=== PATIENT | male | born 1960 | race Caucasian/White ===

== ENCOUNTER 2017-01-22 17:07 | Emergency (ER) | payer BC, OTHER ==
[~2017-01-22] VITALS: Ht 182.9 cm; Wt 83.9 kg
[~2017-01-22 17:07] MED LIST: OXYCODON-ACETA1 EAC2 PO
[2017-01-22] MEDS ORDERED: DICLOFENAC SODI75 MG PO (20:05)
== END 2017-01-22 20:09 | disposition home or self-care (01) ==
LOC: ED 17:07
DX: M94.0 Chondrocostal junction syndrome [Tietze] (principal)
CPT/HCPCS: 71020; 80053; 85025; 85379; 99283

== ENCOUNTER 2020-10-26 13:11 | Emergency (ER) | payer BC ==
[~2020-10-26] VITALS: Ht 182.9 cm; Wt 88.4 kg
[~2020-10-26 13:11] MED LIST changes: +DICLOFENAC SODI75 MG PO
[2020-10-26] MEDS ORDERED: TRIHEXYPHENIDYL2 MG PO (13:44)
[2020-10-26] MEDS ORDERED: CARBIDOPA-LEVO1 EAC1 PO (13:44)
[2020-10-26] MEDS ORDERED: OXYCODONE HCL5 M1 PO (13:45)
== END 2020-10-26 15:41 | disposition home or self-care (01) ==
LOC: ED 13:11
DX: Z48.816 Encounter for surgical aftercare following surgery on the genitourinary system (principal); G20 Parkinson's disease; Z79.899 Other long term (current) drug therapy
CPT/HCPCS: 99283

== ENCOUNTER 2021-02-17 16:54 | Inpatient (IN) | payer BC ==
[~2021-02-17] VITALS: Ht 182.9 cm; Wt 97.5 kg
[~2021-02-17 16:54] MED LIST changes: +CARBIDOPA-LEVO1 EAC1 PO; +OXYCODONE HCL5 M1 PO; +TRIHEXYPHENIDYL2 MG PO
[2021-02-17] MEDS ORDERED: SILDENAFIL20 MG PO (17:10)
--- NOTE | 2021-02-17 22:11 | NUR ---
PT ADMITTED TO ROOM 115 FROM ED, ACCOMPAINED BY HIS DAUGHTER. A/O, RA, PAINFUL WHEN MOVING. REQUIRED MULT STAFF TO SLIDE HIM ACROSS TO THE BED, EXTREME PAIN WITH MOVEMENT, HOWEVER, ONCE IN BED, HIS PAIN DECREASED.
--- NOTE | 2021-02-17 23:10 | NUR ---
PT ALERT AND ORIENTED. REPORTS PELVIC PAIN 12/14. PRN FOR PAIN ADMINISTERED PER EMAR. PT DENIES NAUSEA OR SOB. FRESH WATER AND SNACK PROVIDED. SLIGHT RUE TREMOR NOTED FROM KNOWN PARKINSON'S. LAWN MOWER SHARPENER IN ROOM FOR ADMISSION HX.
--- NOTE | 2021-02-18 00:15 | NUR ---
SCHEDULED MEDS ADMINISTERED PER EMAR. PT REPORTS PAIN /10. SCHEDULED PAIN MEDS ADMINISTERED. SCD'S/TEDS/HP PLACED. ICE TO RIGHT GROIN. BRUISING AND GENERALIZED EDEMA NOTED TO GROIN AREA. BILAT LEGS INVOLUNTARILY EXTENDING LATERALLY. PILLOWS PLACED TO KEEP LEGS ON BED. PT UNABLE TO MOVE BLE WITHOUT ASSISTANCE. SUPPLIES PROVIDED FOR PM CARES. PT ORIENTED TO ROOM AND NURSE CALL LIGHT. DENIES FURTHER NEEDS. CALL LIGHT IN REACH.
--- NOTE | 2021-02-18 02:22 | NUR ---
SCHEDULED MEDS ADMINISTERED. PT REPORTS HE IS RESTING WELL. PAIN 4/10 IN SACRAL AREA AT REST WHICH PT REPORTS IS TOLERABLE. FRESH ICE TO GROIN. SCROTUM ELEVATED. SCD'S/TEDS/HP IN PLACE. PT DENIES FURTHER NEEDS. CALL LIGHT IN REACH.
--- NOTE | 2021-02-18 06:27 | NUR ---
VS AND I&O COMPLETE. SCHEDULED MEDS ADMINISTERED PER EMAR. PRN FOR PAIN ADMINISTERED FOR BREAKTHROUGH PAIN. PT REPOSITIONED IN BED WITH PILLOWS. LEFT LEG WITH SPASMODIC TYPE MOVEMENTS PT REPORTS IS NOT BASELINE. LEGS CONTINUE TO INVOLUNTARILY MOVE LATERALLY. PILLOWS AND TOWELS UTILIZED TO KEEP LEGS ON BED. PT DENIES N/T IN BLE. CAP REFILL WNL. SCD'S/TEDS/HP IN PLACE. HEMATOMA IN RIGHT GROIN AREA UNCHANGED. FRESH ICE TO AREA. SCROTUM ELEVATED. PT PROVIDED MENU AND INSTRUCTIONS TO ORDER BREAKFAST. NO FURTHER NEEDS AT THIS TIME. CALL LIGHT IN REACH.
--- NOTE | 2021-02-18 07:10 | NUR ---
Report received from Keri KLEIN. Pt alert and oriented, states pain is 4/10, medication administered at this time. Discussed retime of chronic parkinsons meds to be closer to home dosage time. Pharmacy called and this is corrected. Pt states no needs at this time, will continue plan of care.
--- NOTE | 2021-02-18 08:16 | NUR ---
Scheduled medications administered, pt resting in bed and requests bathing options, TAILINGS WORKER to take in wipes, shower cap, etc. No other needs at this time
--- NOTE | 2021-02-18 08:26 | NUR ---
PT HAS ALL BEDBATH SUPPLIES AT BEDSIDE. CALL LIGHT WITHIN REACH. FRESH COFFEE GIVEN. NO FURTHER NEEDS.
--- NOTE | 2021-02-18 09:30 | NUR ---
Scheduled medications administered, assessment complete. Pt continues to experience legs involuntarily spreading to outside of bed. Repositioned with pillows, heel protectors and SCDs in place. Pt reports no pain but is anticipating physical therapy and requests to be premedicated with dilaudid, 0.5mg administered. Florina PT in room.
--- NOTE | 2021-02-18 11:12 | NUR ---
MED REC COMPLETE
--- NOTE | 2021-02-18 12:00 | NUR ---
In room for medication administration, Pt up to chair and feeling encouraged related to physical therapy progress. Urinal emptied, lunch tray cleared. Pt has no further needs. Call light in reach.
--- NOTE | 2021-02-18 13:00 | NUR ---
Pt lives alone, adult children will be in town and will assist and stay with pt for approximately 10 days. Pt lives in 1 story home with no stairs or steps. Pt would like a walker and is asking a friend to u use his. Let pt know about [employer] or I can order from DME through insurance. He would like information for cg and dis- cussed in the home. Explained cg cost is out of pocket. Discussed need for HH and this would depend on PT notes and Dr determining need for PT at home.
--- NOTE | 2021-02-18 13:48 | NUR ---
PT AWAKE IN BED. PT BROKE PERSONAL CHARGING CORD, THIS STATION ATTENDANT GAVE PT A LOANER CORD. SNACK GIVEN TO PT. CALL LIGHT WITHIN REACH. NO FURTHER NEEDS AT THIS TIME.
--- NOTE | 2021-02-18 14:00 | NUR ---
Scheduled medications administered, pt resting in bed at this time and states feeling tired and would like to nap. Assessment complete and unchanged, VSS, Pt has no needs, allowed to rest at this time. Call light in reach.
--- NOTE | 2021-02-18 16:52 | NUR ---
Pt worked with physical therapy this shift and tolerated very well, walked laps in hallway with toe touch WB on R side and FWW. Pt pain managed with scheduled toradol, tylenol and 0.5mg PRN dilaudid prior to PT. Pt has normal appetite, VQS, A+O, VSS, on room air, saline locked. 1PA to BR or urinal use. Ice to scrotal area/elevate. Calls appropriately.
--- NOTE | 2021-02-18 17:25 | NUR ---
Reviewed PT note after they worked with pt today. Recommendation is 1-2 days PT. Did not recommend HH PT. I will leave a note for Dr. Rangel asking if he would like PT at home for this pt.
--- NOTE | 2021-02-18 17:58 | NUR ---
Pt requests to walk in hallway, asks for PRN dilaudid prior, administered. Urinal emptied, dinner tray cleared, pt has no further needs.
--- NOTE | 2021-02-18 18:19 | NUR ---
Pt walks in hallway with this RN, toe touch WB with FWW, tolerates very well and walks 3 laps. Back to room and set up with shower. Pt states very little pain at this time, mainly "tight and sore muscles". Discussed plan of care to which he is agreeable. Call light in reach.
--- NOTE | 2021-02-18 19:38 | NUR ---
REPORT RECEIVED FROM DAY SHIFT RN. PT LYING IN BED ALERT AND ORIENTED. REPORTS PAIN IS TOLERABLE AT THIS TIME. FRESH WATER PROVIDED. WHITE BOARD UPDATED. NO FURTHER NEEDS. CALL LIGHT IN REACH.
--- NOTE | 2021-02-18 23:00 | NUR ---
EVENING ASSESSMENT COMPLETE. SCHEDULED MEDS ADMINISTERED PER EMAR. PT RATES SACRAL/GROIN PAIN 09/14. DENIES NAUSA. SCD'S/TEDS IN PLACE. FRESH ICE TO RIGHT GROIN AREA. PT DENIES N/T IN BLE. CAP REFILL WNL. RIGHT GROIN WITH LARGE BRUISE AND EDEMA NOTED. SCROTAL EDEMA NOTED. SCROTUM ELEVATED. FRESH WATER PROVIDED. PT DENIES QUESTIONS OR CONCERNS. CALL LIGHT IN REACH.
--- NOTE | 2021-02-19 01:15 | NUR ---
PT RESTING IN BED WITH EYES CLOSED. RESPIRATIONS EVEN. NO APPARENT DISTRESS. CALL LIGHT IN REACH.
--- NOTE | 2021-02-19 02:37 | NUR ---
SCHEDULED MEDS ADMINISTERED. PT REPORTS HE IS RESTING WELL. DENIES PAIN AT REST. SCD'S/TEDS/HP IN PLACE. FRESH ICE TO GROIN. DENIES NEEDS. CALL LIGHT IN REACH.
--- NOTE | 2021-02-19 04:42 | NUR ---
PT UP TO AMB 3X AROUND NURSING UNIT WITH FWW AND SBA. TTWB RLE. GAIT STEADY. PT BACK TO BED, ZANE WELL. SCD'S/TEDS IN PLACE. COFFE AND FRESH ICE PACK PROVIDED. PT DENIES FURTHER NEEDS. CALL LIGHT IN REACH.
--- NOTE | 2021-02-19 06:40 | NUR ---
PT SITTING UP IN BED. REPORTS SACRAL/GROIN PAIN 09/14. SCHEDULED MEDS ADMINISTERED WITH CRACKERS. FRESH COFFEE PROVIDED. PT DENIES FURTHER NEEDS. CALL LIGHT IN REACH.
--- NOTE | 2021-02-19 08:50 | NUR ---
Spoke with pt about walker. He will have a friend bead picker a loaner walker from [facility]. I also spoke with Estefany BANG and she would like pt to be a IP to cont. PT.
--- NOTE | 2021-02-19 08:50 | NUR ---
Spoke with pt about walker. He will a friend borrow one from [place]. Family plan to stay with Scot on dc.
--- NOTE | 2021-02-19 09:05 | NUR ---
Scheduled medications administered, assessment complete. Pt in bathroom independently using FWW, requests to walk in hallway with aide. Pt states pain is tolerable at this time, has been icing and elevating affected areas. No other needs at this time, will continue plan of care
--- NOTE | 2021-02-19 10:15 | NUR ---
Tramadol administered, pt reports pain up to 6/10 with ambulation but back to 4 with rest, does not require further PRN medications at this time. MARKETING MANAGER HEALTH COMMUNICATIONS in room to take vitals, ice water provided, pt has no other needs from RN
--- NOTE | 2021-02-19 10:24 | NUR ---
VS AND I&O HAVE BEEN TAKEN AND DOCUMENTED. PT IS SITTING UP IN THE CHAIR AND HAS NO OTHER NEEDS AT THIS TIME. INFORMED PT TO CALL IF HE THINKS OF ANYTHING. CALL LIGHT IS IN REACH.
--- NOTE | 2021-02-19 12:25 | NUR ---
Medications administered, pt eating lunch in bed and states no pain, no needs. Discussed physical therapy progress and pt is encouraged. Call light in reach
--- NOTE | 2021-02-19 14:21 | NUR ---
Scheduled medications administered, pt up working with physical therapist, states no pain and or other needs at this time, in good spirits.
--- NOTE | 2021-02-19 19:31 | NUR ---
SHIFT REPORT RECEIVED FROM AMY KLEIN. PT RESTING IN BED, PLAYING ON COMPUTER. NO NEEDS AT THIS TIME. CALL LIGHT IN REACH.
--- NOTE | 2021-02-19 21:07 | NUR ---
PATIENT ROOM TIDIED, VITALS, IS AND OS CHARTED, TRASH EMPTIED, FRESH ICE WATER PROVIDED. NO OTHER IMMEDIATE NEEDS AT THIS TIME.
--- NOTE | 2021-02-19 21:17 | NUR ---
PATIENT HAD WINE GLASS ON TABLE, PATIENT THEN NOTIFED ME THAT SOMEONE HAD POURED HIM A GLASS OF WINE. PATIENT NURSE WAS NOTIFIED IMMEDIATELY.
--- NOTE | 2021-02-19 21:20 | NUR ---
NOTIFIED BY CROP NUTRITION SCIENTIST THAT PT WAS DRINKING RED WINE. RN WALKS INTO ROOM PT IS FINISHING DRINK. RN DISCUSSED WITH PT THE POSSIBLE CONFLICTS OF ALCOHOL WITH MEDICATION. PT VERBALIZES UNDERSTANDING OF EDUCATION AND STATES THAT THAT WAS THE LAST OF THE ALCOHOL HE HAS WITH HIM AND HE WILL NOT BE DRINKING ANYMORE. PT ASKED HOW OFTEN HE DRINKS, HE STATES "NOT DAILY." RN ADVISED PT THAT IF HE FEELS HE NEEDS ALCOHOL WHILE HERE THAT MD CAN BE CALLED AND ADVISED ETOH WITHDRAWL WOULD NOT BENEFIT HIM. PT DENIES NEED FOR AN ORDER FOR ALCOHOL. PT VERBALIZES UNDERSTANDING OF ALCOHOL EDUCATION. NO OTHER NEEDS AT THIS TIME. CALL LIGHT IN REACH.
--- NOTE | 2021-02-19 22:00 | NUR ---
ASSESSMENT COMPLETED. GCS 15, A&O X4. LUNGS CLEAR, HEART TONES REGULAR. ABD SOFT, NONTENDER, BOWEL TONES ACTIVE. RIGHT THIGHT AND BUTTOCKS PAIN 4/10. SCHEDULED MEDS PROVIDED. CMS INTACT. SCROTAL EDEMA NOTED, ICE PACKS PROVIDED. IV WNL, CDI, FLUSHED WELL. PT UP WALKING LAPS WITH BYPRODUCTS OPERATOR.
--- NOTE | 2021-02-19 22:15 | NUR ---
ASSISTED PATIENT WITH TTWB ON RIGHT LEG. ASSISTED PATIENT WITH 6 LAPS AROUND THE FLOOR. ASSISTED PATIENT BACK TO ROOM, CHARTED PATIENT IS AND OS, WELL WITH PERSONAL HYGIENE, CONNECTED SCD'S, PROVIDED FRESH ICE WATER, ROOM TIDIED, FRESH ICE PACKS PROVIDED FOR CARE PLAN GOALS. CALL LIGHT LEFT WITHIN REACH. NO OTHER IMMEDIATE NEEDS AT THIS TIME.
--- NOTE | 2021-02-19 23:03 | NUR ---
PATIENT VOIDED IN TOILET, UNMEASURE, DOCUMENTED. INTAKE DOCUMENTED WELL. RIGHT HEEL FLOATED WITH PILLOW. CALL LIGHT LEFT WITHIN REACH, NO OTHER IMMEDIATE NEEDS AT THIS TIME.
--- NOTE | 2021-02-19 23:22 | NUR ---
PT RESTING IN BED, EYES CLOSED. RR EVEN, UNLABORED. CALL LIGHT IN REACH.
--- NOTE | 2021-02-20 01:57 | NUR ---
SCHEDULED MED PROVIDED. PT REPORTS NO PAIN AT THIS TIME. NO OTHER NEEDS. CALL LIGHT IN REACH.
--- NOTE | 2021-02-20 03:28 | NUR ---
PT RESTING IN BED, EYES CLOSED. RR EVEN, UNLABORED. CALL LIGHT IN REACH.
--- NOTE | 2021-02-20 06:12 | NUR ---
ASSESSMENT, VS AND I&O COMPLTED. SCHEDULED MED PROVIDED. RIGHT GROIN PAIN 09/14. HEMATOMA AND EDEMA TO GROIN, PUBIS AND POSTERIOR RIGHT THIGH UNCHANGED THIS SHIFT. CMS INTACT. IV WNL. PAIN WELL MANAGED WITH SCHEDULED MEDS. PT WALKED 5 LAPS AROUND FLOOR WITH FWW. COFFEE PROVIDED. NO OTHER NEEDS AT THIS TIME. CALL LIGHT IN REACH.
--- NOTE | 2021-02-20 07:08 | NUR ---
REPORT RECEIVED FROM ERNIE BILLINGSLEY. PT UP TO CHAIR, DOING PHYICAL THERAPY EXERCISESE "THAT ELIJAH TOLD ME TO DO." PT REPORTS 3/10 PAIN THAT IS WELL CONTROLED, DENIES NEED FOR ADDITIONAL PAIN MEDICATION. PT DENIES NAUSEA. NO ADDITIONAL REQUESTS OR COMPLAINTS. CALL LIGHT WITHIN REACH. 0700 MEDICATIONS TO BE GIVEN BY ERNIE BILLINGSLEY.
--- NOTE | 2021-02-20 07:15 | NUR ---
SCHEDULED MEDS PROVIDED. NO OTHER NEEDS. CALL LIGHT IN REACH.
--- NOTE | 2021-02-20 08:50 | NUR ---
Spoke with Estefany as she is here to see Scot. Updated he is waiting on a walker, she states she will pick one up fromthe office and bring for him to use at home. Plans on dc today. Spoke with Scot and his son will machine operator picker and transport home.
--- NOTE | 2021-02-20 09:10 | NUR ---
MORNING ASSESSMENT AND MEDICATIONS DUE. PT UP TO CHAIR, FINISHING BREAKFAST. PT REPORTS 2/10 PAIN WHEN RESTING THAT "SOMETIMES GOES UP TO 3 OR 4 DEPENDING ON HOW I MOVE." ASSESSMENT DONE. STRONG PLANTAR AND NIDHI FLEXION NOTED TO BLE. PT ABLE TO LIFT BOTH LEGS FROM THE KNEE STRAGHT UP. PT HAS DIFFICULTY LIFTING LEGS USING QUADRACEPT MUSCLES, STRIGHT UP FROM CHAIR. STRONG PULSES NOTED, SENSATION INTACT TO BLE. PT UP TO AMBULATE IN MORAN X2 LAPS WITH THIS RN. PT TOLERATES WALKING WITH WALKER AND TOE TOUCH ONLY ON RIGHT LEG WELL, PT REPORTS PAIN OF 3/10 WITH AMBULATION. PT DENEIS INCREASE IN PARKENSON TREMORS WITH INJURY AND STATES THEY HAVE BEEN STABLE. MINOR TREMOR NOTED TO RIGHT HAND AT TIMES. SWELLING TO GROIN AND SCROTUM CONTINUE, STABLE, PT REPORTS "IT ACTUALLY SEEMS A LITTLE BETTER." BRUSING NOTED THROUGHOUT GROIN, LOWER ABDOMEN AND NOW INTO UPPER THIGHS. PT UP TO PHYSICAL THERPAY ROOM FOR THERAPY. NO ADDIITONAL REQUESTS OR COMPLAINTS AT THIS TIME.
[2021-02-20] MEDS ORDERED: OXYCODONE HCL5 MG PO (10:21)
[2021-02-20] MEDS ORDERED: TRAMADOL HCL50 MG PO (10:22)
[2021-02-20] MEDS ORDERED: GABAPENTIN300 MG PO (10:23)
--- NOTE | 2021-02-20 10:34 | NUR ---
THIS RN TO ROOM TO CHECK ON PT. PT UP TO CHAIR, FINISHED WITH PHYSICAL THERAPY AND STATES HE IS READY FOR DISCHARGE. PT REPORS 2/10 PAIN THAT IS WELL CONTROLED. PT VERBALIZES UNDERSTANDING OF INSTRUCTIONS FROM BETI CHUNG, CONCERNING DISCHAGE. PT REPORTS HE WOULD LIKE TO SHOWER, JOHANNY UPDATED. NO ADDITIONAL REQUESTS OR COMPLAINTS. CALL LIGHT WITHIN REACH.
--- NOTE | 2021-02-20 10:42 | NUR ---
IV DC'D PER PROTOCOL. GAUZE AND COBAN APPLIED. TIP INTACT, NO S/S OF PHELBITIS NOTED. STAND BY ASSIST UP TO SHOWER. PT INDEPENDANT IN SHOWER, SITTING IN SHOWER CHAIR. PT DENIES ADDITIONAL REQUESTS OR COMPLAINTS. DEMONSTRATES USE OF CALL LIGHT.
--- NOTE | 2021-02-20 11:13 | NUR ---
PT FINISHED WITH SHOWER AND READY FOR DISCHARGE. PHARAMSICT TO BEDSIDE TO REVIEW MEDICATIONS WITH PT. PT VERBALIZES UNDERSANDING OF MEDICATIONS AND STATES HIS QUESTIONS HAVE BEEN ANSWERED. TERRI OSORIO APPLIED BY THIS RN. ADDITIONAL PAIR SENT HOME WITH PT. PT REPORTS PAIN REMAINS AT 2/10, PT DENIES NEED FOR ADDITIONAL MEDICATION. DISCHARGE INSTRUCTIONS REVIEWED WITH PT. PT VERBALIZES UNDERSTANDING OF INSTRUCTIONS, WEIGHT BEARING RESTRICTIONS, ACTIVITY RESTRICTIONS, PHYSICAL THERAPY INSTRUCTIONS, AND FOLLOW UP. PT DENIES ADDITIONAL REQUESTS OR CONCERNS. PT WHEELED FROM MED/SURG TO MEET HIS SON.
== END 2021-02-20 11:35 | disposition home or self-care (01) | DRG 551 ==
LOC: ED 16:54 → MS 16:56
PROVIDERS: ADMIT Specialist; ATTEND Specialist
DX: S32.1 Fracture of sacrum (principal); S32.811B Multiple fractures of pelvis with unstable disruption of pelvic ring, initial encounter for open fracture; Z20.822 Contact with and (suspected) exposure to COVID-19; I10 Essential (primary) hypertension; G20 Parkinson's disease; S30.21XA Contusion of penis, initial encounter; S33.8XXA Sprain of other parts of lumbar spine and pelvis, initial encounter; S30.22XA Contusion of scrotum and testes, initial encounter; W55.12XA Struck by horse, initial encounter; Y93.52 Activity, horseback riding
CPT/HCPCS: 74177; 76870; 80048; 80053; 81001; 85025; 96376; 97110; 97116; 97162; 97530; 99284-25; C9803; G0378; J1170; J7030; Q9967; U0003